=== PATIENT | female | born 1985 | race Caucasian/White ===

== ENCOUNTER 2021-08-17 10:44 | Emergency (ER) | payer BC, OTHER ==
[~2021-08-17] VITALS: Ht 160 cm; Wt 56.7 kg
[2021-08-17] MEDS ORDERED: CEFDINIR300 MG PO (11:04)
[2021-08-17] MEDS ORDERED: ACETAMINOPHEN500 MG PO (11:04)
[2021-08-17] MEDS ORDERED: AZITHROMYCIN250 MG PO (11:04)
[2021-08-17] MEDS ORDERED: DIPHENHYDRAMINE50 M1 PO (11:04)
== END 2021-08-17 11:15 | disposition home or self-care (01) ==
LOC: FSED 10:49
DX: O26.91 Pregnancy related conditions, unspecified, first trimester (principal); J20.9 Acute bronchitis, unspecified; J06.9 Acute upper respiratory infection, unspecified; R05.9 Cough, unspecified
CPT/HCPCS: 83518; 99283

== ENCOUNTER 2021-08-21 10:47 | Emergency (ER) | payer BC ==
[~2021-08-21] VITALS: Ht 160 cm; Wt 56.7 kg
[~2021-08-21 10:47] MED LIST: ACETAMINOPHEN500 MG PO; AZITHROMYCIN250 MG PO; CEFDINIR300 MG PO; DIPHENHYDRAMINE50 M1 PO
[2021-08-21] MEDS ORDERED: ALBUTEROL SULF 0.083% NEB SOLN 3 ML NEB NEB STA (11:10)
[2021-08-21] MEDS ORDERED: ALBUTEROL SULF 0.083% NEB SOLN 3 ML NEB ONE (11:29)
[2021-08-21] MEDS ORDERED: PROAIR HFA INH8.5 GM INH (11:48)
== END 2021-08-21 11:58 | disposition home or self-care (01) ==
LOC: FSED 11:11
DX: O26.891 Other specified pregnancy related conditions, first trimester (principal); J20.9 Acute bronchitis, unspecified; R05.9 Cough, unspecified
CPT/HCPCS: 87400; 99283